=== PATIENT | male | born 1945 | race Caucasian/White ===

== ENCOUNTER 2017-09-29 09:59 | Emergency (ER) | payer MEDICARE, OTHER ==
[2017-09-29] MEDS ORDERED: LIDOCAINE PATCH 5% TOP PRN (11:02)
--- NOTE | 2017-09-29 11:08 | XRAY Report ---
EXAM: RIGHT RIB RADIOGRAPHY EXAM DATE: 09/29/2017 10:48 AM. CLINICAL HISTORY: Right post rib pain after fall last week; worse after sneeze last night. COMPARISON: CT chest 04/12/2014. TECHNIQUE: 1 view of the chest and 2 views of the ribs. 3 images are provided. FINDINGS: Bones: Minimally displaced acute fracture of the posterolateral aspect of the right sixth rib. No oth er rib fractures are apparent, however ribs 9 through 12 are poorly demonstrated. Lungs: No focal consolidation. No pneumothorax. No pleural effusions. Mediastinum: Heart and mediastinal contours are unremarkable. Other: None. IMPRESSION: Acute, minimally displaced fracture of the right sixth rib. [facility] Referring Provider Line: [phone] SITE ID: [id number]
--- NOTE | 2017-09-29 11:27 | ED Physician Documentation ---
History of Present Illness - Stated complaint Stated Complaint: SHOULDER PX - Chief complaint Chief Complaint: Back Pain - Additonal information Additional information: hx from pt 72 male was pulling a cart of hay raffi and fell and hit posterior R upper back mild pain until he sneezed yesterday then much more severe hx aortic aneurysm so concerned no head neck injiry otherwise well Review of Systems Cardiac: reports: Chest pain / pressure Respiratory: denies: Dyspnea GI: denies: Abdominal Pain Musculoskeletal: denies: Neck pain Neurologic: denies: Head injury PD PAST MEDICAL HISTORY - Past Medical History Past Medical History: Yes Cardiovascular: Hypertension, High cholesterol Other Past Medical History: Aortic aneyrism dx 2010 - Past Surgical History Past Surgical History: Yes General: Appendectomy HEENT: Tonsil/Adenoidectomy - Present Medications Home Medications: Ambulatory Orders Medication Instructions Recorded Confirmed Lidocaine Patch 5% [Lidoderm Patch] 1 each TOP DAILY PRN #10 patch 09/29/17 - Allergies Allergies/Adverse Reactions: Allergies Allergy/AdvReac Type Severity Reaction Status Date / Time No Known Drug Allergies Allergy Verified 04/12/14 09:32 - Social History Does the pt smoke?: No Smoking Status: Never smoker Does the pt drink ETOH?: No Does the pt have substance abuse?: No PD ED PE NORMAL - Vitals Vital signs reviewed: Yes - HEENT HEENT: Atraumatic - Cardiac Cardiac: RRR - Respiratory Respiratory: No respiratory distress, Clear bilaterally, Other (TTP post leateral ribs approx ribs 6-8 no crepitus) - Abdomen Abdomen: Non tender Results - Vitals Vitals: Vital Signs - 24 hr 09/29/17 10:19 Temperature 36.5 C Heart Rate 58 L Respiratory 16 Rate Blood Pressure 142/70 H O2 Saturation 99 Oxygen O2 Source Room air - Rads (name of study) CXR ribs Radiology: See rad report (acute minimally displaced r 6th rib fx, no pneumo) PD MEDICAL DECISION MAKING - ED course ED course: focal TTP and rib fx at that site after fall explains the pain do not think dissection study needed Departure - Departure Disposition: 01 Home, Self Care Clinical Impression: Rib fracture Qualifiers: Encounter type: initial encounter Rib fracture type: single rib Fracture type: closed Laterality: right Qualified Code(s): S22.31XA - Fracture of one rib, right side, initial encounter for closed fracture Condition: Good Instructions: ED Fx Rib Prescriptions: Lidocaine Patch 5% [Lidoderm Patch] 1 each TOP DAILY PRN #10 patch PRN Reason: Pain Comments: Please use the incentive spirometer we gave you to help keep your lung fully inflated and prevent collapse or infection May wear the lidocaine patch up to 12 hr a day Tylenol and ice will help as well Follow up PMD as needed Return to the ER if acutely worse
[2017-09-29 12:01] VITALS: BP 110/79
== END 2017-09-29 11:59 | disposition home or self-care (01) ==
LOC: ED 09:59
DX: S22.31XA Fracture of one rib, right side, initial encounter for closed fracture (principal); W19.XXXA Unspecified fall, initial encounter; I10 Essential (primary) hypertension; E78.00 Pure hypercholesterolemia, unspecified
CPT/HCPCS: 71101; 99283; A9270

== ENCOUNTER 2018-05-19 15:58 | Outpatient (CLI) | payer MEDICARE, OTHER | END 2018-05-19 15:59 | disposition home or self-care (01) | LOC: LAB 15:58 | PROVIDERS: ATTEND Urology | DX: N39.0 Urinary tract infection, site not specified (principal) | CPT/HCPCS: 87086 ==

== ENCOUNTER 2019-09-03 22:54 | Emergency (ER) | payer MEDICARE, OTHER ==
[2019-09-03 23:00] VITALS: BP 143/108
--- NOTE | 2019-09-03 23:10 | ED Physician Documentation ---
History of Present Illness - Stated complaint Stated Complaint: LT ARM PX/FALL - Chief complaint Chief Complaint: Trauma Ext - History obtained from History obtained from: Patient (the patient is a right hand dominant male who p/w a cc of left wrist pain after a fall. denies any other complaints. denies head or neck pain.) Review of Systems Constitutional: reports: Reviewed and negative Eyes: reports: Reviewed and negative Ears: reports: Reviewed and negative Nose: reports: Reviewed and negative Throat: reports: Reviewed and negative Cardiac: reports: Reviewed and negative Respiratory: reports: Reviewed and negative GI: reports: Reviewed and negative : reports: Reviewed and negative Skin: reports: Reviewed and negative Musculoskeletal: reports: Joint pain, Other (left wrist pain) Neurologic: reports: Reviewed and negative Psychiatric: reports: Reviewed and negative Endocrine: reports: Reviewed and negative Immunocompromised: reports: Reviewed and negative PD PAST MEDICAL HISTORY - Past Medical History Past Medical History: Yes Cardiovascular: Hypertension, High cholesterol Respiratory: None Neuro: None Endocrine/Autoimmune: HyPERthyroidism GI: None : None HEENT: None Psych: None Musculoskeletal: None Derm: None - Past Surgical History Past Surgical History: Yes General: Appendectomy HEENT: Tonsil/Adenoidectomy - Present Medications Home Medications: Ambulatory Orders Medication Instructions Recorded Confirmed Lidocaine Patch 5% [Lidoderm Patch] 1 each TOP DAILY PRN #10 patch 09/29/17 Hydrocodone/Acetaminophen [[place] 1 each PO Q6HR PRN #14 tablet 09/03/19 5-325 Tablet] Ondansetron Odt [Zofran] 4 mg TL Q6H PRN #10 tablet 09/03/19 - Allergies Allergies/Adverse Reactions: Allergies Allergy/AdvReac Type Severity Reaction Status Date / Time No Known Drug Allergies Allergy Verified 04/12/14 09:32 - Social History Does the pt smoke?: No Smoking Status: Never smoker Does the pt drink ETOH?: No Does the pt have substance abuse?: No - POLST Patient has POLST: No PD ED PE NORMAL - Vitals Vital signs reviewed: Yes - General General: Alert and oriented X 3, No acute distress, Well developed/nourished - HEENT HEENT: Atraumatic, PERRL, Moist mucous membranes, Pharynx benign - Neck Neck: Supple, no meningeal sign, No JVD - Cardiac Cardiac: RRR, No murmur, Strong equal pulses - Respiratory Respiratory: No respiratory distress, Clear bilaterally - Abdomen Abdomen: Normal bowel sounds, Soft, Non tender, Non distended, No organomegaly - Back Back: No CVA TTP, No spinal TTP - Derm Derm: Normal color, Warm and dry, No rash - Extremities Extremities: No deformity, Other (ttp diffusely over the left wrist, no pain over the anatomical snuff box, diffuse swelling, radina/median/ulnar motor and sensory exam are intact, cap refill less than 2 seconds, compartment soft, silt, nv intact. no pain over the proximal radial head.) - Neuro Neuro: Alert and oriented X 3 - Psych Psych: Normal mood, Normal affect Results - Vitals Vitals: Vital Signs - 24 hr 09/03/19 22:59 Temperature 37.3 C Heart Rate 69 Respiratory 18 Rate Blood Pressure 143/108 H O2 Saturation 96 Oxygen O2 Source Room air Procedures - Splint (location) Upper extremity left Splint applied by: Tech Type of splint: Fiberglass, Sugar tong Other: Patient tolerated well, No complications, Neurovascular intact, Good alignment, Other PD MEDICAL DECISION MAKING - ED course Complexity details: considered differential (wrist/forearm fracture. ), d/w patient (we do not have ortho coverage here. I offered to transfer patient to higher level of care for evaluation by orthopedic surgeon, patient does not want to be transferred, patient Has medical decision-making capability capacity accepts all risks to include permanent disability or deformity.Fiberglass sugar tong splint placed to the left forearm and wrist.) Departure - Departure Disposition: 01 Home, Self Care Clinical Impression: Left forearm fracture Qualifiers: Encounter type: initial encounter Fracture type: closed Qualified Code(s): S52.92XA - Unspecified fracture of left forearm, initial encounter for closed fracture Condition: Stable Instructions: ED Fx Forearm Radius Ulna No Redu Requ Follow-Up: [facility] [Provider Group] - Within 1 week Prescriptions: Hydrocodone/Acetaminophen [[place] 5-325 Tablet] 1 each PO Q6HR PRN #14 tablet PRN Reason: Pain Ondansetron Odt [Zofran] 4 mg TL Q6H PRN #10 tablet PRN Reason: Nausea / Vomiting
--- NOTE | 2019-09-03 23:42 | XRAY Report ---
Reason: wrist pain fall Procedure Date: 09/03/2019 Accession Number: [id number] / [id number] Procedure: XR - Wrist 4 View LT CPT Code: Final Report FULL RESULT: EXAM: LEFT WRIST RADIOGRAPHY EXAM DATE: 09/03/2019 11:01 PM. CLINICAL HISTORY: Wrist pain fall. COMPARISON: None. TECHNIQUE: 3 views. FINDINGS: Bones: There is a mildly displaced and comminuted oblique fracture involving the distal radial shaft. The fracture appears to extend to the margin of the articular surface however no articular surface disruption seen. The distal ulna is intact. Joints: Normal. No subluxations. Soft Tissues: Normal. No soft tissue swelling. IMPRESSION: Mildly displaced and comminuted distal radial metadiaphyseal fracture. [facility]
--- NOTE | 2019-09-03 23:45 | XRAY Report ---
Reason: pain Procedure Date: 09/03/2019 Accession Number: [id number] / [id number] Procedure: XR - Forearm LT CPT Code: Final Report FULL RESULT: EXAM: LEFT FOREARM RADIOGRAPHY EXAM DATE: 09/03/2019 11:11 PM. CLINICAL HISTORY: Fall. Injury. Pain. COMPARISON: WRIST 3 VIEW LT 09/03/2019 11:01 PM. TECHNIQUE: 2 views. FINDINGS: Bones: Mildly displaced oblique comminuted fractures of the distal radial shaft extending to the joint surface. No other bony abnormalities. Joints: Normal. No effusions or subluxations in the visualized wrist or elbow joints. Soft Tissues: Unremarkable. IMPRESSION: Mildly displaced comminuted distal radial shaft fractures with intra-articular extension. [facility]
== END 2019-09-04 00:18 | disposition home or self-care (01) ==
LOC: ED 22:54
DX: S52.302A Unspecified fracture of shaft of left radius, initial encounter for closed fracture (principal); W19.XXXA Unspecified fall, initial encounter; I10 Essential (primary) hypertension
CPT/HCPCS: 29105

== ENCOUNTER 2020-03-13 11:27 | Outpatient (CLI) | payer MEDICARE, OTHER | END 2020-03-13 11:28 | disposition home or self-care (01) | LOC: COV 11:27 | PROVIDERS: ATTEND Family Medicine | DX: R50.9 Fever, unspecified (principal); R05 Cough; R53.83 Other fatigue; J02.9 Acute pharyngitis, unspecified; R19.7 Diarrhea, unspecified; R09.81 Nasal congestion; Z20.828 Contact with and (suspected) exposure to other viral communicable diseases ==

== ENCOUNTER 2020-12-26 12:10 | Outpatient (CLI) | payer MEDICARE, OTHER ==
[2020-12-26 20:12] LABS: BILIRUBIN,URINE NEGATIVE (NEGATIVE); GLUCOSE, URINE (UA) NEGATIVE (NEGATIVE); KETONES,URINE (UA) NEGATIVE (NEGATIVE); LEUKOCYTE ESTERASE, URINE SMALL (NEGATIVE); NITRITE,URINE NEGATIVE (NEGATIVE); OCCULT BLOOD,URINE NEGATIVE (NEGATIVE); PROTEIN,URINE NEGATIVE (NEGATIVE); UROBILINOGEN,URINE 0.2 (NORMAL) E.U./dL (NORMAL)
[2020-12-26 20:14] LABS: CLARITY,URINE SL. CLOUDY (CLEAR)
[2020-12-26 20:23] LABS: RBC,URINE None Seen /HPF (0-5)
[2020-12-26 20:24] LABS: BACTERIA,URINE Moderate /HPF (None Seen); SQUAMOUS EPITHELIAL CELL,UR FEW Squamous (<= Few)
== END 2020-12-26 23:59 | disposition home or self-care (01) ==
LOC: LAB.R 12:10
PROVIDERS: ATTEND Emergency Medicine
DX: N39.0 Urinary tract infection, site not specified (principal)
CPT/HCPCS: 81001; 87077; 87086

== ENCOUNTER 2023-08-04 10:23 | Outpatient (CLI) | payer MEDICARE, OTHER | END 2023-08-04 23:59 | disposition short-term general hospital (02) | LOC: EMS 10:23 | DX: R07.89 Other chest pain (principal); R20.2 Paresthesia of skin; I48.91 Unspecified atrial fibrillation | CPT/HCPCS: A0425; A0427 ==

== ENCOUNTER 2024-01-12 08:00 | Outpatient (CLI) | payer MEDICARE, OTHER ==
--- NOTE | 2024-01-13 09:59 | XRAY Report ---
PROCEDURE: Wrist 3+V RT INDICATIONS: PAIN IN RIGHT WRIST TECHNIQUE: 3 views of the wrist were acquired. COMPARISON: None FINDINGS: Bones: No fractures or dislocations. No suspicious bony lesions. Soft tissues: No suspicious soft tissue calcifications or masses. IMPRESSION: Soft tissue swelling without fracture or foreign body Reviewed by: Raj Samson MD on 01/13/2024 8:58 AM [facility] Approved by: Raj Samson MD on 01/13/2024 8:58 AM [facility] Station ID: [id number]
== END 2024-01-12 23:59 | disposition home or self-care (01) ==
LOC: DI.S 08:00
PROVIDERS: ATTEND Emergency Medicine
DX: M25.531 Pain in right wrist (principal); R93.6 Abnormal findings on diagnostic imaging of limbs; R93.89 Abnormal findings on diagnostic imaging of other specified body structures